=== PATIENT | male | born 1975 ===

== ENCOUNTER 2017-05-22 19:12 | Emergency (ER) | payer OTHER ==
[~2017-05-22] VITALS: Ht 188 cm; Wt 222.3 kg
[~2017-05-22 19:12] MED LIST: AMOX1TAB12 PO; KEFLEX500 MG; KETO10TA2 PO; LEVSIN0.125 MG PO; MUCINEX1200 MG/BO PO; NASONEX17 GM NS; PREVACID30 MG PO; ZANTAC300 MG PO; ZOFRAN4 MG PO; [UNRECOGNIZED DRUG - OTHER]
== END 2017-05-23 01:29 | disposition home or self-care (01) ==
LOC: ER 19:12
DX: J11.1 Influenza due to unidentified influenza virus with other respiratory manifestations (principal)